=== PATIENT | male | born 2000 | race Caucasian/White ===

== ENCOUNTER 2022-08-10 19:06 | Emergency (ER) | payer OTHER ==
[~2022-08-10] VITALS: Ht 188 cm; Wt 77.3 kg
[2022-08-10 19:08] VITALS: BP 130/82
[2022-08-10] MEDS ORDERED: PENI500T2 PO (19:59)
== END 2022-08-10 20:13 | disposition home or self-care (01) ==
LOC: ER 19:06
DX: K04.7 Periapical abscess without sinus (principal); F12.10 Cannabis abuse, uncomplicated; Z91.030 Bee allergy status; Z79.899 Other long term (current) drug therapy
CPT/HCPCS: 99283

== ENCOUNTER 2025-06-13 22:15 | Emergency (ER) | payer MEDICAID ==
[~2025-06-13] VITALS: Ht 188 cm; Wt 77.3 kg
--- NOTE | 2025-06-13 22:34 | Physician Documentation ---
History of Present Illness ~ Chief Complaint: Laceration Stated Complaint: HAND LAC Time Seen by MD: 22:24 Primary Medical Doctor: none HPI This is a 25-year-old male that presents to the emergency department for evaluation of right hand lacerations. Patient reports he was walking on the stairs when he slipped and accidentally put his hand through a mirror. Bleeding is currently controlled. Patient denies taking any thing for pain prior to presentation to the ER. No other injuries reported at this time. Tetanus Within 5 Years: Yes Medication Reconciliation Allergies: Coded Allergies: carpio (Unverified Allergy, Severe, 08/10/22) Past Medical History Past Medical History: No Pertinent History Past Surgical History: no surgical history Alcohol Use: Occasionally Drug Use: marijuana Lives with: Family Lives In: Home Occupation: child Review of Systems ROS As stated above in the HPI, otherwise all systems are reviewed and negative. Physical Exam Vital Signs: Temperature: 98.1, Heart Rate: 108, Respiratory Rate: 16, BP: 129/69, Pulse Oximetry: 98, Weight: 77.270 Oxygen Flow Rate: 0 Physical Exam VITALS: Reviewed and as above. GENERAL: Alert, no apparent distress. HEENT: Normocephalic, atraumatic, PERRL, EOMI, dry mucosa, no erythema RESPIRATORY: Lungs clear, normal breath sounds, no respiratory distress. CHEST: No accessory muscle use, no retractions CV: Regular rate, rhythm, no edema, no murmur, No: JVD GI: Soft, non-tender, bowels sounds present, no rebound, guarding, or rigidity BACK: No CVA tenderness, or swelling MUSCULOSKELETAL No deformities, mild edema noted to the 1st digit on the right hand. SKIN: Warm and dry, multiple lacerations noted to the dorsal aspect of the right hand fingers. NEURO: Oriented x4, No motor or sensory deficit PSYCH: Normal mood and affect, no agitation Progress Results/Orders Results/Orders Completed Orders - FELA FLOWERS [employer] Lidocaine 1% 30ml Vial (Xylocaine 1% Via (06/13/25 22:35) Vital Signs 06/13/25 22:16 Temp 98.1 Pulse 108 Resp 16 B/P (MAP) 129/69 Pulse Ox 98 O2 Flow Rate 0 Medical Decision Making Findings Wound inspected under direct bright light with good visualization. Area with linear laceration across soft tissue through adipose without exposure of muscle belly or tendon. No overt foreign body. Area hemostatic. Neurovascular exam congruent with above. Area extensively irrigated with sterile normal saline under pressure. Laceration repaired in simple fashion as below (please see procedure note for further details). Patient tolerated procedure well and neurovascular exam intact and unchanged post repair with intact distal pulses and cap refill appropriate. Cautious return precautions discussed w/ full understanding. Wound care discussed. Prompt follow up with primary care physician discussed and return for suture removal in 7-10 days. Patient will follow up with primary care provider for suture removal. Patient will return to the emergency department with any worsening of his current symptoms or any additional concerning symptoms that we discussed here today i.e. increased swelling increased pain signs of infection fever or any other concerning symptoms. Antibiotic prescribed. Wound care provided. Tylenol ibuprofen for discomfort. Please keep suture sites dry for 48 hours. Differential Dx:Considerations: Include: Abrasion, Avulsion, Contusion, Laceration, Fracture, Hematoma, Neurovascular injury, Retained foreign body, Other Departure Disposition: HOME / SELF CARE / HOMELESS Impression: Primary Impression: Laceration Additional Impression: Pain Condition: Stable Discharge Instructions: Laceration Care, Adult, [id number] Additional Instructions: Wound inspected under direct bright light with good visualization. Area with linear laceration across soft tissue through adipose without exposure of muscle belly or tendon. No overt foreign body. Area hemostatic. Neurovascular exam congruent with above. Area extensively irrigated with sterile normal saline under pressure. Laceration repaired in simple fashion as below (please see procedure note for further details). Patient tolerated procedure well and neurovascular exam intact and unchanged post repair with intact distal pulses and cap refill appropriate. Cautious return precautions discussed w/ full understanding. Wound care discussed. Prompt follow up with primary care physician discussed and return for suture removal in 7-10 days. Patient will follow up with primary care provider for suture removal. Patient will return to the emergency department with any worsening of his current symptoms or any additional concerning symptoms that we discussed here today i.e. increased swelling increased pain signs of infection fever or any other concerning symptoms. Referrals: NO PRIMARY CARE PROVIDER (PCP) Prescriptions Doxycycline Hyclate (Doxycycline Hyclate) 100 Mg Capsule 1 CAP PO Q12H for 10 Days, #20 CAP Prov: FELA FLOWERS 06/14/25 Education Educated: Patient Educated regarding: diagnosis, treatment, need for follow up Signature Scribe Signature: A Attestation: Scribed for Fela Flowers by ADELE Gomez . 06/14/25 00:27 FELA FLOWERS Jun 13, 2025 22:34
[2025-06-13] MEDS ORDERED: LIDOcaine 1% 30ml preserv. free vial IJ STA (22:35)
--- NOTE | 2025-06-13 23:12 | RADIOLOGY REPORT ---
CLINICAL INDICATION: HAND PAIN RIGHT TECHNIQUE: 3 views, DI HAND, COMPLETE (3VW MIN) Comparison: None FINDINGS/IMPRESSION: There is no evidence of acute fracture or dislocation. Soft tissues are unremarkable.
[2025-06-14] MEDS ORDERED: DOXY-1 PO (00:27)
[2025-06-14 00:43] VITALS: BP 128/68; PULSE 89; RESP 18; TEMP 98.6; O2SAT 99
== END 2025-06-14 00:54 | disposition home or self-care (01) ==
LOC: ER 22:16
DX: S61.411A Laceration without foreign body of right hand, initial encounter (principal); W10.9XXA Fall (on) (from) unspecified stairs and steps, initial encounter; Y93.89 Activity, other specified; Y92.89 Other specified places as the place of occurrence of the external cause; Y99.8 Other external cause status
CPT/HCPCS: 12001; 73130; 99283; A6222; A6449